=== PATIENT | female | born 1975 | race Caucasian/White ===

== ENCOUNTER 2016-03-10 17:33 | Emergency (ER) ==
[2016-03-10] MEDS ORDERED: ATIVAN IV ONE ×3 (18:25→20:59)
--- NOTE | 2016-03-10 18:31 | PROVIDER DOCUMENTATION ---
Addendum entered and electronically signed by Austin Pollack Scribe 03/10/16 21:59 : Progress - PLAN OF CARE/RESULTS Progress/Plan/Lab Results: Laboratory Tests 03/10/16 03/10/16 03/10/16 18:00 18:00 18:00 WBC 8.45 RBC 5.97 H Hgb 15.9 Hct 46.8 MCV 78.4 L MCH 26.6 L MCHC 34.0 RDW Std Deviation 14.4 Plt Count 274 MPV 12.1 H Immature Gran % (Auto) 0.4 Neut % (Auto) 49.6 Lymph % (Auto) 39.6 [place] % (Auto) 10.3 H Eos % (Auto) 0.0 Baso % (Auto) 0.1 Immature Gran # (Auto) 0.03 Neut # (Auto) 4.19 Lymph # (Auto) 3.35 [place] # (Auto) 0.87 H Eos # (Auto) 0.00 Baso # (Auto) 0.01 Sodium 139 Potassium 3.8 Chloride 104 Carbon Dioxide 24 L Anion Gap 11 BUN 10 Creatinine 0.7 Estimated GFR/1.73 m2 > 60 BUN/Creatinine Ratio 14 Glucose 101 Calculated Osmolality 277 Calcium 9.6 Magnesium 2.0 Total Bilirubin 0.30 AST 13 ALT 9 L Alkaline Phosphatase 79 Total Protein 7.7 Albumin 4.8 Globulin 3.0 Albumin/Globulin Ratio 2.0 Orders Category Date Time Status HEAD W/O CONTRAST [CT] Stat Exams 03/10/16 18:25 Taken CBC WITH DIFF [HEME] Stat Lab 03/10/16 18:00 Completed CMP [COMPREHENSIVE METABOLIC PANEL] [CHEM] Stat Lab 03/10/16 18:00 Completed MAGNESIUM [CHEM] Stat Lab 03/10/16 18:00 Completed UA [UA NIMS W/REFLEX CULT PL] [URINALYSIS] Stat Lab 03/10/16 20:02 Ordered Lorazepam [Ativan] Med 03/10/16 18:25 Discontinued 1 mg IV NOW ONE Lorazepam [Ativan] Med 03/10/16 19:45 Discontinued 1 mg IV NOW ONE Lorazepam [Ativan] Med 03/10/16 20:59 Discontinued 1 mg IV NOW ONE EKG [EKG] Stat Ther 03/10/16 18:24 Draft Vital Signs - 24 hr 03/10/16 03/10/16 17:35 21:17 Temperature 99.6 F 97.5 F L Pulse Rate 120 H 92 H Respiratory 20 18 Rate Blood Pressure 134/082 122/085 O2 Sat by Pulse 100 100 Oximetry Original Note: HPI-General Adult - General Chief Complaint: Numbness Stated Complaint: STROKE LIKE SX Time Seen by Provider: 03/10/16 18:10 Allergies/Adverse Reactions: Patient Allergies Allergy/AdvReac Type Severity Reaction Status Date / Time Penicillins Allergy Unknown Verified 03/10/16 17:43 - History of Present Illness -Gen Adult Nature of Presenting Problems: 40 YOWF WITH HX OF MS, MIGRAINES, ANEURYSM OF THE BRAIN, WITH C/O PT STATES THIS MORNING AROUND 2 AM SHE WOKE UP WITH SEVERE CRAMPS IN RT FOOT AND RT CALF. TODAY PT STATES SHE TOOK A NAP AROUND 2 PM AND WOKE UP AND LEFT ARM AND LEG WAS NUMB AND SHE COULD NOT MOVE EITHER. PT STATES SHE HAS HAD PRIOR ISSUES WHERE HER POTASSIUM HAS BOTTOMED OUT. Location of Pain/Injury: reports: upper extremity (LEFT), hand(s) (LEFT), lower extremity (LEFT), feet (LEFT) Pain Radiation: reports: no radiation Quality of Pain: reports: burning, other (TINGLING) Severity: reports: moderate Onset/Duration: reports: 4-6 hours ago Timing: reports: still present Context/Activities at Onset: reports: light activity Modifying Factors: improves with: nothing Similar Symptoms Previously?: No Recently seen or treated by another doctor?: No Review of Systems - Adult - REVIEW OF SYSTEMS - ADULT Constitutional: reports: fever. denies: chills Eyes: denies: decreased vision, blurred vision, double vision Ears, Nose, Mouth & Throat: reports: no symptoms reported Cardiovascular: denies: chest pain, palpitations, syncope Respiratory: denies: cough, shortness of breath, wheezing Gastrointestinal: reports: abdominal pain (LLQ MILD). denies: diarrhea, nausea , vomiting Genitourinary: reports: no symptoms reported Musculoskeletal: denies: back pain, joint pain, neck pain Integumentary: reports: no symptoms reported Neurological: reports: headache/migraines. denies: dizziness/vertigo, syncope Psychiatric: reports: no symptoms reported Endocrine: reports: no symptoms reported Hematologic/Lymphatic: reports: no symptoms reported Allergic/Immunologic: reports: no symptoms reported All Other Systems: Reviewed and Negative Past History - Adult - PAST MEDICAL HISTORY-ADULT Review of Records: reports: Nursing Assessment Review, Medications Reviewed - IMMUNIZATION STATUS Childhood Immunizations: See Nurse Assessment Flu Vaccine: See Nurse Assessment - SOCIAL HISTORY Smoking: cigarettes, less than 1 pack/day Provider spent 3-5 mins advising pt. on dangers of tobacco.: Discussed manners to quit use, and f/u contacts for add'l counseling. Living Situation: family Physical Exam-General - CONSTITUTIONAL General Appearance: alert - EYES Eyes: PERRL/EOMI, pink conjunctivae - HEAD, EARS, NOSE, MOUTH & THROAT HENMT: normocephalic/atraumatic, moist mucous membranes - NECK Neck: non-tender, full range of motion, supple - RESPIRATORY Respiratory: chest non-tender, lungs clear, normal breath sounds - CARDIOVASCULAR Cardiovascular: normal peripheral pulses, regular rate, rhythm - GASTROINTESTINAL (ABDOMEN) Abdominal Exam: normal bowel sounds, non tender, soft - LYMPHATIC Lymphatic: no adenopathy - MUSCULOSKELETAL Back Exam: normal inspection, no CVA tenderness, no vertebral tenderness Extremity: normal range of motion, non-tender - SKIN Integumentary: normal color, normal turgor, warm/dry - NEUROLOGIC Neurologic: grossly normal - PSYCHIATRIC Psych/Mental Status: oriented x 3 Progress - EKG 1 Time of EKG reading by physician:: 18:50 EKG Read and Signed by:: Carlos Acharya EKG Interpretation (*Must complete 3 of following elements*): Normal Rate: 98 Rhythm: NSR [place]: normal QRS: normal - CT/MRI 1 CT Study: Head CT Results: NEGATIVE - CONSULTS/PCP/HOSPITALIST Notification #1 *Consult/PCP/Hospitalist*: DR ORNELAS. Time Discussed: 19:36 Reason/Comments: DR ACHARYA SPOKE WITH DR ORNELAS FROM [facility] NEURO. DR ORNELAS WILL REIVE PT AT [facility]. Departure - Departure Time of Disposition Order: 19:42 DIAGNOSIS: Exacerbation of multiple sclerosis Disposition: [facility] 02 Certified Medical Emergency: Emergent Condition: Stable Additional Instructions: ED Follow Up Instructions: You have been treated by a care provider in the Emergency Department. These instructions are being provided to you so you can have an understanding of how to care for yourself upon discharge. Upon discharge from the Emergency Department, you are responsible for making arrangements for follow-up care by a physician of your choice. Take all prescribed medications as directed. Return to the Emergency Department immediately for any new or worsening symptoms. You may call the Physician Referral phone number at [phone] to obtain a list of Physicians who are taking new patients. Attestation - Scribe Verification/Attestation Scribe:: Austin Pollack Acting as Scribe for:: Carlos Acharya Scribe documention review:: This chart was documented by a scribe and accurately reflects the service the provider performed and the decisions made by the provider.
[2016-03-10 18:37] LABS: MANUAL DIFF NEEDED? NO
[2016-03-10 18:49] LABS: BASO% 0.1 % (0.0-0.8); HEMATOCRIT 46.8 % (37.0-47.0); HEMOGLOBIN 15.9 g/dL (12.0-16.0); IMM GRAN# 0.03 X1000 (0.0-0.04); IMM GRAN% 0.4 % (0.0-0.5); LYMPH# 3.35 X1000 (1.2-3.4); LYMPH% 39.6 % (20.5-51.1); MCH 26.6 PG (27-31); MCV 78.4 FL (81-99); MONO# 0.87 X1000 (0.11-0.59); MONO% 10.3 % (1.7-9.3); MPV 12.1 FL (7.4-10.4); NEUT% 49.6 % (42.2-75.2); PLT 274 X1000 (130-400); RBC 5.97 XMIL (4.2-5.4)
[2016-03-10 18:56] LABS: AGAP 11; ALBUMIN 4.8 g/dL (3.5-5.0); ALKALINE PHOSPHATASE 79 U/L (32-104); BUN 10 mg/dL (8-22); CALCIUM 9.6 mg/dL (8.8-10.2); CHLORIDE 104 mmol/L (98-107); COSMO 277; GOT 13 U/L (10-30); GPT 9 U/L (10-36); POTASSIUM 3.8 mmol/L (3.5-5.1); SODIUM 139 mmol/L (136-145); TCO2 24 mmol/L (25-35); TOTAL PROTEIN 7.7 g/dL (6.3-8.3)
--- NOTE | 2016-03-10 19:07 | EKG Report ---
Test Performed on : 03/10/2016 6:49:10 PM Test Reason : left sided tingling/weakness Blood Pressure : / mmHG Vent. Rate : 098 BPM Atrial Rate : 098 BPM P-R Int : 134 ms QRS Dur : 100 ms QT Int : 362 ms P-R-T Axes : 039 072 040 degrees QTc Int : 462 ms Normal sinus rhythm. Normal ECG No previous ECGs available Unconfirmed Result
[2016-03-10 21:20] VITALS: BP 122/085
--- NOTE | 2016-03-11 06:48 | Diag Imaging Result Document ---
PROCEDURE NAME: HEAD W/O CONTRAST - 03/10/2016 CT BRAIN WITHOUT CONTRAST: TECHNIQUE: Dose-reduction protocol. COMPARISON: No comparison films. FINDINGS: No parenchymal hemorrhage. No epidural or subdural hematoma. No subarachnoid hemorrhage. No mass identified on this noncontrasted exam. No hydrocephalus. No sinus opacification. No air fluid levels. IMPRESSION: No hemorrhage. Negative brain CT without contrast. A preliminary report was given at 7:29 p.m.
== END 2016-03-10 22:15 | disposition short-term general hospital (02) ==
LOC: P.ED 17:33
DX: G35 Multiple sclerosis (principal); R20.0 Anesthesia of skin; R25.2 Cramp and spasm; R20.2 Paresthesia of skin; R50.9 Fever, unspecified; R10.32 Left lower quadrant pain; R51 Headache; F17.210 Nicotine dependence, cigarettes, uncomplicated; Z71.6 Tobacco abuse counseling; Z86.79 Personal history of other diseases of the circulatory system
CPT/HCPCS: 70450; 80053; 83735; 85025; 93005; 96374; 96376; J2060